=== PATIENT | female | born 1990 | race Caucasian/White ===

== ENCOUNTER 2017-09-06 19:36 | Emergency (ER) | payer OTHER ==
[~2017-09-06] VITALS: Ht 167.6 cm; Wt 100.0 kg
[~2017-09-06 19:36] MED LIST: NAPR500 PO
[2017-09-06 19:38] VITALS: BP 137/82; PULSE 106; RESP 15; TEMP 98.5; O2SAT 98
--- NOTE | 2017-09-06 19:59 | PD ---
Physical Exam Date Seen by Provider: Sep 06, 2017 Time Seen by Provider: 19:58 Narrative 27 yo female here for vaginal discharge. Going on for a month. Some pelvic pain. No BM issues. No urinary issues. No blood. Unknown . Vitals are stable in triage. Awaiting bed placement. Data Data Last Documented VS Vital Signs Date Time Temp Pulse Resp B/P (MAP) Pulse Ox O2 Delivery O2 Flow Rate FiO2 09/06/17 19:38 98.5 106 15 137/82 (100) 98 Room Air [facility] Medical Record Reviewed: Yes Supervised Visit with ROSIBEL: Valentín Bassett Sep 06, 2017 19:59
--- NOTE | 2017-09-06 21:59 | PD ---
HPI Chief Complaint: [employer] Problem/Complaint Time Seen by Provider: 21:45 Travel History International Travel<30 days: No Contact w/Intl Traveler<30days: No Traveled to known affect area: No History of Present Illness HPI 27-year-old female presents to the emergency department for abnormal vaginal discharge for 1 month. When asked why she came today she states "I am tired of it". Patient denies any fevers or chills. No chest pain or shortness of breath. She denies any abdominal pain associated vaginal discharge. No nausea , vomiting, diarrhea, constipation. She denies any urinary symptoms. She denies stating she is on control pills. Patient denies any new sexual partners or risk of STDs. She reports one sexual partner for the past 7 years. PFSH Past Surgical History Ear Surgery: Yes (TUBES) Tonsillectomy: Yes Social History Alcohol Use: No Tobacco Use: No Substance Use: No Allergies-Medications (Allergen,Severity, Reaction): Coded Allergies: No Known Allergies (Unverified , 09/06/17) Reported Meds & Prescriptions Reported Meds & Active Scripts Active No Active Prescriptions or Reported Medications Review of Systems Except as stated in HPI: all other systems reviewed are Neg Physical Exam Narrative GENERAL: Well-nourished, well-developed female patient, ambulatory. Afebrile. SKIN: Focused skin assessment warm/dry. HEAD: Normocephalic. Atraumatic. EYES: No scleral icterus. No injection or drainage. NECK: Supple, trachea midline. No JVD or lymphadenopathy. CARDIOVASCULAR: Regular rate and rhythm without murmurs, gallops, or rubs. RESPIRATORY: Breath sounds equal bilaterally. No accessory muscle use. Lungs sounds are clear to auscultation. GASTROINTESTINAL: Abdomen soft, non-tender, nondistended. MUSCULOSKELETAL: No cyanosis, or edema. GENITOURINARY: Normal external genitalia without lesions or erythema. Vaginal vault without blood or drainage. Cervical os was closed with mild white, yellow drainage.. No cervical motion tenderness. Uterus nontender and nonenlarged. Bilateral adnexa nontender without masses. Pelvic exam was done with RN at bedside. This exam was done with RN at bedside. Data Data Last Documented VS Vital Signs Date Time Temp Pulse Resp B/P (MAP) Pulse Ox O2 Delivery O2 Flow Rate FiO2 09/06/17 19:38 98.5 106 15 137/82 (100) 98 Room Air Orders Orders Gc And Chlamydia Pcr (09/06/17 21:52) Wet Prep Profile (09/06/17 21:52) Urinalysis - C+S If Indicated (09/06/17 21:52) Ed Urine Pregnancytest Poc (09/06/17 21:52) Labs Laboratory Tests Test 09/06/17 20:05 09/06/17 22:15 Urine Color YELLOW Urine Turbidity HAZY Urine pH 6.0 Urine Specific [place] 1.013 Urine Protein NEG mg/dL Urine Glucose (UA) NEG mg/dL Urine Ketones NEG mg/dL Urine Occult Blood TRACE Urine Nitrite NEG Urine Bilirubin NEG Urine Urobilinogen LESS THAN 2.0 MG/DL Urine Leukocyte Esterase LARGE Urine RBC 2 /hpf Urine WBC 4 /hpf Urine Squamous Epithelial Cells 2 /hpf Microscopic Urinalysis Comment CULT NOT INDICATED Clue Cells (Wet Prep) NONE SEEN Vaginal Trichomonas (Wet Prep) NONE SEEN Vaginal Yeast (Wet Prep) NONE SEEN MDM Medical Decision Making Medical Screen Exam Complete: Yes Emergency Medical Condition: Yes Medical Record Reviewed: Yes Differential Diagnosis bacterial vaginosis versus vaginal candidiasis versus STI versus cervicitis versus UTI Narrative Course 27 year old female presents to the emergency department for evaluation of abnormal vaginal discharge she reports one sexual partner for 7 years. She has no other associated symptoms. Patient gives verbal consent for pelvic exam. UA , urine test, wet prep, swab for Chlamydia/gonorrhea are ordered and pending. UA is negative for acute infection. Urine test is negative. Wet prep is negative for clue cells, Trichomonas, yeast. Patient will be treated for possible false-negative BV, yeast. She'll be discharged with a prescription for Flagyl, Diflucan. Patient is instructed to follow up with lvn. She verbalizes agreement and understanding. The patient was discharged in stable condition with instructions, including return instructions and follow up instructions. 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 Do not drink alcohol while taking this medication. Take Diflucan as directed. Follow-up with lvn. Return to the emergency department for any acute worsening of symptoms. Med/Other Pt SpecificInfo: Prescription(s) given Scripts Fluconazole (Diflucan) 150 Mg Tab 150 MG PO ONCE for Infection, #1 TAB 0 Refills Prov: Nakia Donaldson 09/06/17 Metronidazole (Flagyl) 500 Mg Tab 500 MG PO BID for Infection for 7 Days, #14 TAB 0 Refills Prov: Nakia Donaldson 09/06/17 Disposition: 01 DISCHARGE HOME Condition: Stable Nakia Donaldson Sep 06, 2017 21:59
[2017-09-06 22:35] LABS: BLOOD, URINE TRACE (NEG); COMMENT (UR) CULT NOT INDICATED; CULTURE IF INDICATED CULT NOT INDICATED; GLUCOSE,URINE NEG (NEG); KETONE, URINE NEG (NEG); NITRITE,URINE NEG (NEG); SQUAMOUS EPITHELIAL CELL URINE 2 /hpf (0-5); URINE COLOR YELLOW (YELLW/STRAW)
[2017-09-06] MEDS ORDERED: METR-1 PO (22:45)
[2017-09-06] MEDS ORDERED: DIFL150T PO (22:45)
[2017-09-07 00:38] LABS: CHLAMYDIA PCR NOT DETECTED (NOT DETECT); NEISSERIA PCR NOT DETECTED (NOT DETECT)
== END 2017-09-06 22:58 | disposition home or self-care (01) ==
LOC: NEPD 19:36
DX: N89.8 Other specified noninflammatory disorders of vagina (principal)
CPT/HCPCS: 81001; 84703; 87210; 87491; 87591; 99284